=== PATIENT | female | born 1960 | race Caucasian/White ===

== ENCOUNTER 2017-10-30 15:57 | Inpatient (IN) | payer MEDICARE ==
[~2017-10-30] VITALS: Ht 160 cm; Wt 118.6 kg
[2017-10-30] MEDS ORDERED: methylPREDNISolone SOD SUCC 125 MG/2 ML ONE (16:20)
[2017-10-30] MEDS ORDERED: SODIUM CHLORIDE FLUSH 10ML SYR IVF ONE (16:30)
[2017-10-30] MEDS ORDERED: SODIUM CHLORIDE 0.9% 1,000ML IVBOLUS ONE (16:30)
[2017-10-30] MEDS ORDERED: methylPREDNISolone SOD SUCC 125 MG/2 ML IVP ONE (16:30)
[2017-10-30] MEDS ORDERED: ALBUTEROL SULFATE 2.5 MG/3 ML NPPB ONE (16:35)
[2017-10-30] MEDS ORDERED: ALBUTEROL SULFATE 2.5 MG/3 ML ONE (16:36)
[2017-10-30] MEDS ORDERED: ALBUTEROL SULFATE 2.5 MG/3 ML NPPB PRN (17:00)
[2017-10-30 17:06] LABS: BASOPHILS # (AUTO) 0.03 x10^3/uL (0-0.1); BASOPHILS % (AUTO) 0 % (0-1); EOSINOPHILS # (AUTO) 0.13 x10^3/uL (0-0.4); EOSINOPHILS % (AUTO) 2 % (1-7); LYMPHOCYTES # (AUTO) 0.97 x10^3/uL (1-3.4); LYMPHOCYTES % (AUTO) 15 % (22-44); MD NO; MEAN CORPUSCULAR HEMOGLOBIN 32.5 pg (27.0-34.8); MEAN CORPUSCULAR HGB CONC 33.2 g/dL (32.4-35.8); MEAN CORPUSCULAR VOLUME 97.9 fL (80-100); MEAN PLATELET VOLUME 7.9 fL (7.4-10.4); MONOCYTES # (AUTO) 0.28 x10^3/uL (0.2-0.8); MONOCYTES % (AUTO) 4 % (2-9); NEUTROPHILS # (AUTO) 5.27 x10^3/uL (1.8-6.8); NEUTROPHILS % (AUTO) 79 % (42-75); PLATELET COUNT 230 x10^3/uL (130-400); RED BLOOD COUNT 3.21 x10^6/uL (3.82-5.3); RED CELL DISTRIBUTION WIDTH 21.3 % (9.6-15.2)
[2017-10-30 17:18] LABS: ALANINE AMINOTRANSFERASE 14 U/L (12-78); ALBUMIN 3.6 g/dL (3.4-5.0); ANION GAP 6 mmol/L (5-15); CALCIUM 8.5 mg/dL (8.5-10.1); CHLORIDE 112 mmol/L (98-107); CREATININE 1.18 mg/dL (0.55-1.02)
[2017-10-30 17:22] LABS: ALKALINE PHOSPHATASE 112 U/L (45-117); BILIRUBIN,TOTAL 1.3 mg/dL (0.2-1.0); TOTAL PROTEIN 7.1 g/dL (6.4-8.2); TROPONIN I 0.031 ng/mL (0.000-0.045)
[2017-10-30] MEDS ORDERED: SITA1TBM7 PO (17:27)
[2017-10-30] MEDS ORDERED: FURO-92 PO (17:27)
[2017-10-30] MEDS ORDERED: METO-99 PO ×2 (17:27→17:37)
[2017-10-30] MEDS ORDERED: SERT50TA5 PO (17:27)
[2017-10-30] MEDS ORDERED: LISI2.5T PO (17:27)
[2017-10-30] MEDS ORDERED: AMIO200T42 PO (17:27)
[2017-10-30] MEDS ORDERED: CYCL-259 PO (17:27)
[2017-10-30] MEDS ORDERED: ATOR40TA PO (17:27)
[2017-10-30] MEDS ORDERED: CYAN10005 PO (17:37)
[2017-10-30] MEDS ORDERED: BUDE10.2 INH (17:37)
[2017-10-30] MEDS ORDERED: GLIM2TAB2 PO (17:37)
[2017-10-30] MEDS ORDERED: TIOT18CA INH (17:37)
[2017-10-30] MEDS ORDERED: WARF-36 PO (17:37)
[2017-10-30] MEDS ORDERED: CHOL500045 PO (17:37)
[2017-10-30] MEDS ORDERED: WARF5TAB PO (17:38)
[2017-10-30] MEDS ORDERED: NITROGLYCERIN OINT 2%, 1GM TP ONE ×2 (17:52→18:00)
[2017-10-30] MEDS ORDERED: FUROSEMIDE 40 MG/4 ML ONE (17:52)
[2017-10-30] MEDS ORDERED: FUROSEMIDE 40 MG/4 ML IV ONE (18:30)
[2017-10-30 20:28] VITALS: BP 164/97
[2017-10-30] MEDS ORDERED: METOPROLOL TARTRATE 100 MG TABLET PO SCH (21:00)
[2017-10-30] MEDS ORDERED: ALBUTEROL SULFATE 2.5 MG/3 ML NPPB SCH (21:00)
[2017-10-30 21:07] LABS: INTERNATIONAL NORMALIZED RATIO 1.6 (0.93-1.1); PROTHROMBIN TIME 16.3 Seconds (9.6-11.5)
[2017-10-30] MEDS ORDERED: ALBUTEROL/IPRATROPIUM 2.5MG/0.5MG, 3 ML ONE (21:27)
[2017-10-30] MEDS ORDERED: ALBUTEROL/IPRATROPIUM 2.5MG/0.5MG, 3 ML NPPB PRN (21:30)
[2017-10-30] MEDS ORDERED: WARFARIN 3 MG TABLET PO-COUM ONE (21:30)
[2017-10-30] MEDS: ALBUTEROL/IPRATROPIUM 2.5MG/0.5MG, 3 ML NPPB SCH (21:31)
[2017-10-30] MEDS: ATORVASTATIN 40 MG TABLET PO SCH (22:48)
[2017-10-30 22:54] VITALS: BP 164/100
[2017-10-31] MEDS ORDERED: DIPHENHYDRAMINE 25 MG CAPSULE PO PRN (00:15)
[2017-10-31] MEDS ORDERED: hydrOXyzine 10MG TABLET ONE (00:49)
[2017-10-31 00:51] VITALS: BP 147/89
[2017-10-31] MEDS: ALBUTEROL/IPRATROPIUM 2.5MG/0.5MG, 3 ML NPPB SCH ×4 (02:37→18:43)
[2017-10-31 05:36] LABS: INTERNATIONAL NORMALIZED RATIO 1.38 (0.93-1.1); PROTHROMBIN TIME 14.1 Seconds (9.6-11.5)
[2017-10-31 05:42] LABS: ANION GAP 6 mmol/L (5-15); CALCIUM 9.4 mg/dL (8.5-10.1); CHLORIDE 107 mmol/L (98-107)
[2017-10-31 06:45] VITALS: BP 184/94
[2017-10-31] MEDS ORDERED: IPRATROPIUM 0.5 MG/2.5 ML INHA NPPB SCH (09:00)
[2017-10-31] MEDS ORDERED: FUROSEMIDE 40 MG TABLET PO SCH (09:00)
[2017-10-31] MEDS: AMIODARONE 200 MG TABLET PO SCH (09:24)
[2017-10-31] MEDS: GLIMEPIRIDE 1 MG TABLET PO SCH (09:25)
[2017-10-31] MEDS: LISINOPRIL 5 MG TABLET PO SCH (09:25)
[2017-10-31] MEDS: FLUTICASONE/VILANTEROL 200-25MCG/INH INH SCH (09:25)
[2017-10-31] MEDS: TEMPLATE NON-FORMULARY MED. (Sitagliptin Phos/Metformin Hcl (Janumet Xr 100-1,000 Mg Table PO SCH (09:25)
[2017-10-31] MEDS: CYANOCOBALAMIN 1,000 MCG TABLET PO SCH (09:26)
[2017-10-31] MEDS: SERTRALINE 50MG TABLET PO SCH (09:26)
[2017-10-31] MEDS: FUROSEMIDE 40 MG TABLET PO SCH ×2 (09:26→22:53)
[2017-10-31] MEDS: INSULIN LISPRO 100 UNITS/ML, PEN SQ-INSULIN SCH ×3 (12:30→21:00)
[2017-10-31 12:50] VITALS: BP 146/81
[2017-10-31] MEDS ORDERED: WARFARIN 5 MG TABLET PO-COUM ONE (18:00)
[2017-10-31 18:22] VITALS: BP 142/83
[2017-10-31] MEDS: ATORVASTATIN 40 MG TABLET PO SCH (22:54)
[2017-11-01 01:35] VITALS: BP 137/91
[2017-11-01 05:31] LABS: INTERNATIONAL NORMALIZED RATIO 1.37 (0.93-1.1)
[2017-11-01 05:42] LABS: ANION GAP 7 mmol/L (5-15); CALCIUM 8.8 mg/dL (8.5-10.1); CHLORIDE 107 mmol/L (98-107)
[2017-11-01] MEDS: ALBUTEROL/IPRATROPIUM 2.5MG/0.5MG, 3 ML NPPB SCH ×4 (06:45→20:00)
[2017-11-01 07:05] VITALS: BP 153/92
[2017-11-01] MEDS: INSULIN LISPRO 100 UNITS/ML, PEN SQ-INSULIN SCH ×4 (07:23→20:44)
[2017-11-01] MEDS: TEMPLATE NON-FORMULARY MED. (Sitagliptin Phos/Metformin Hcl (Janumet Xr 100-1,000 Mg Table PO SCH (08:12)
[2017-11-01] MEDS: CYANOCOBALAMIN 1,000 MCG TABLET PO SCH (09:37)
[2017-11-01] MEDS: AMIODARONE 200 MG TABLET PO SCH (09:37)
[2017-11-01] MEDS: LISINOPRIL 5 MG TABLET PO SCH (09:38)
[2017-11-01] MEDS: GLIMEPIRIDE 1 MG TABLET PO SCH (09:38)
[2017-11-01] MEDS: SERTRALINE 50MG TABLET PO SCH (09:38)
[2017-11-01] MEDS: FUROSEMIDE 40 MG TABLET PO SCH ×2 (09:38→20:43)
[2017-11-01] MEDS: FLUTICASONE/VILANTEROL 200-25MCG/INH INH SCH (10:16)
[2017-11-01 13:10] VITALS: BP 151/89
[2017-11-01] MEDS: ACETAMINOPHEN 500 MG TABLET PO PRN (15:41)
[2017-11-01] MEDS ORDERED: WARFARIN 5 MG TABLET PO-COUM ONE (18:00)
[2017-11-01 19:18] VITALS: BP 137/68
[2017-11-01] MEDS: ATORVASTATIN 40 MG TABLET PO SCH (20:43)
[2017-11-01 20:49] VITALS: BP 154/79
[2017-11-02] VITALS (9 sets, daily range): BP systolic 132–155; BP diastolic 80–107
[2017-11-02 05:19] LABS: INTERNATIONAL NORMALIZED RATIO 1.33 (0.93-1.1); PROTHROMBIN TIME 13.6 Seconds (9.6-11.5)
[2017-11-02 05:28] LABS: CHLORIDE 102 mmol/L (98-107)
[2017-11-02 05:39] LABS: ANION GAP 8 mmol/L (5-15); CALCIUM 8.6 mg/dL (8.5-10.1); CREATININE 1.22 mg/dL (0.55-1.02)
[2017-11-02] MEDS: INSULIN LISPRO 100 UNITS/ML, PEN SQ-INSULIN SCH ×4 (07:21→21:07)
[2017-11-02] MEDS: ALBUTEROL/IPRATROPIUM 2.5MG/0.5MG, 3 ML NPPB SCH ×4 (07:51→20:00)
[2017-11-02] MEDS: LISINOPRIL 5 MG TABLET PO SCH (09:03)
[2017-11-02] MEDS: FUROSEMIDE 40 MG TABLET PO SCH ×2 (09:03→21:07)
[2017-11-02] MEDS: SPIRONOLACTONE 25 MG TABLET PO SCH (09:03)
[2017-11-02] MEDS: CYANOCOBALAMIN 1,000 MCG TABLET PO SCH (09:04)
[2017-11-02] MEDS: SERTRALINE 50MG TABLET PO SCH (09:04)
[2017-11-02] MEDS: AMIODARONE 200 MG TABLET PO SCH (09:04)
[2017-11-02] MEDS: FLUTICASONE/VILANTEROL 200-25MCG/INH INH SCH (09:05)
[2017-11-02] MEDS ORDERED: VERAPAMIL 2.5 MG/ML, 2ML IVPush ONE (09:30)
[2017-11-02] MEDS ORDERED: AMIODARONE 150 MG in DEXTROSE 5% 100 ML IV ONE ×2 (11:00→15:00)
[2017-11-02] MEDS ORDERED: FILTER 0.22 MICRON FOR AMIODARONE IV PRN (11:30)
[2017-11-02] MEDS: metFORMIN XR 500 MG TAB.ER.24H PO SCH (11:37)
[2017-11-02] MEDS: CYCLOBENZAPRINE 10 MG TABLET PO PRN (12:09)
[2017-11-02] MEDS ORDERED: AMIODARONE 450 MG in DEXTROSE 5% 241 ML IV PRN (15:00)
[2017-11-02] MEDS: AMIODARONE 450 MG in DEXTROSE 5% 241 ML IV PRN (15:21)
[2017-11-02] MEDS: METOPROLOL TARTRATE 25 MG TABLET PO SCH (17:33)
[2017-11-02] MEDS ORDERED: WARFARIN 7.5 MG TABLET PO-COUM ONE (18:00)
[2017-11-02] MEDS: ATORVASTATIN 40 MG TABLET PO SCH (21:07)
[2017-11-03 00:51] VITALS: BP 123/91
[2017-11-03] MEDS: AMIODARONE 450 MG in DEXTROSE 5% 241 ML IV PRN ×2 (01:06→16:37)
[2017-11-03 02:48] VITALS: BP 113/82
[2017-11-03 03:46] VITALS: BP 123/93
[2017-11-03] MEDS: METOPROLOL TARTRATE 25 MG TABLET PO SCH ×2 (03:47→18:41)
[2017-11-03] MEDS ORDERED: DILTIAZEM 5 MG/ML, 5ML IVPush PRN (04:00)
[2017-11-03 05:12] LABS: ANION GAP 7 mmol/L (5-15); CALCIUM 8.9 mg/dL (8.5-10.1); CHLORIDE 97 mmol/L (98-107); CREATININE 1.32 mg/dL (0.55-1.02)
[2017-11-03 05:44] LABS: INTERNATIONAL NORMALIZED RATIO 1.28 (0.93-1.1); PROTHROMBIN TIME 13.1 Seconds (9.6-11.5)
[2017-11-03 06:57] VITALS: BP 130/79
[2017-11-03] MEDS: INSULIN LISPRO 100 UNITS/ML, PEN SQ-INSULIN SCH ×4 (07:00→21:00)
[2017-11-03] MEDS: ALBUTEROL/IPRATROPIUM 2.5MG/0.5MG, 3 ML NPPB SCH ×4 (07:25→19:55)
[2017-11-03] MEDS: metFORMIN XR 500 MG TAB.ER.24H PO SCH (08:00)
[2017-11-03] MEDS: LISINOPRIL 5 MG TABLET PO SCH (09:19)
[2017-11-03] MEDS: SERTRALINE 50MG TABLET PO SCH (09:19)
[2017-11-03] MEDS: CYANOCOBALAMIN 1,000 MCG TABLET PO SCH (09:20)
[2017-11-03] MEDS: FUROSEMIDE 40 MG TABLET PO SCH (09:20)
[2017-11-03] MEDS: SPIRONOLACTONE 25 MG TABLET PO SCH (09:20)
[2017-11-03] MEDS: FLUTICASONE/VILANTEROL 200-25MCG/INH INH SCH (09:30)
[2017-11-03] MEDS ORDERED: POLYETHYLENE GLYCOL 17 GM PACKET PO ONE (11:00)
[2017-11-03] MEDS ORDERED: POTASSIUM CHLORIDE 20 MEQ TAB.ER.PRT PO ONE (11:00)
[2017-11-03 13:45] VITALS: BP 118/81
[2017-11-03] MEDS ORDERED: WARFARIN 7.5 MG TABLET PO-COUM ONE (18:00)
[2017-11-03] MEDS ORDERED: WARFARIN 10 MG TABLET PO-COUM ONE (18:00)
[2017-11-03 19:15] VITALS: BP 115/76
[2017-11-03] MEDS: ATORVASTATIN 40 MG TABLET PO SCH (23:08)
[2017-11-04 00:15] VITALS: BP 129/87
[2017-11-04 05:15] LABS: BASOPHILS # (AUTO) 0.02 x10^3/uL (0-0.1); BASOPHILS % (AUTO) 0 % (0-1); EOSINOPHILS # (AUTO) 0.24 x10^3/uL (0-0.4); EOSINOPHILS % (AUTO) 4 % (1-7); LYMPHOCYTES # (AUTO) 0.91 x10^3/uL (1-3.4); LYMPHOCYTES % (AUTO) 13 % (22-44); MD NO; MEAN CORPUSCULAR HEMOGLOBIN 31.8 pg (27.0-34.8); MEAN CORPUSCULAR HGB CONC 32.6 g/dL (32.4-35.8); MEAN CORPUSCULAR VOLUME 97.5 fL (80-100); MEAN PLATELET VOLUME 8.3 fL (7.4-10.4); MONOCYTES # (AUTO) 0.38 x10^3/uL (0.2-0.8); MONOCYTES % (AUTO) 6 % (2-9); NEUTROPHILS # (AUTO) 5.23 x10^3/uL (1.8-6.8); NEUTROPHILS % (AUTO) 77 % (42-75); PLATELET COUNT 216 x10^3/uL (130-400); RED BLOOD COUNT 3.17 x10^6/uL (3.82-5.3); RED CELL DISTRIBUTION WIDTH 19.8 % (9.6-15.2)
[2017-11-04 05:21] LABS: INTERNATIONAL NORMALIZED RATIO 1.45 (0.93-1.1); PROTHROMBIN TIME 14.8 Seconds (9.6-11.5)
[2017-11-04 05:26] LABS: CALCIUM 9.3 mg/dL (8.5-10.1); CHLORIDE 97 mmol/L (98-107)
[2017-11-04 05:30] LABS: ANION GAP 5 mmol/L (5-15); CREATININE 1.47 mg/dL (0.55-1.02)
[2017-11-04] MEDS: ALBUTEROL/IPRATROPIUM 2.5MG/0.5MG, 3 ML NPPB SCH ×4 (07:00→20:08)
[2017-11-04] MEDS: INSULIN LISPRO 100 UNITS/ML, PEN SQ-INSULIN SCH ×4 (07:00→20:21)
[2017-11-04 07:50] VITALS: BP 98/69
[2017-11-04] MEDS: metFORMIN XR 500 MG TAB.ER.24H PO SCH ×2 (08:00→09:57)
[2017-11-04 09:55] VITALS: BP 138/99
[2017-11-04] MEDS: FLUTICASONE/VILANTEROL 200-25MCG/INH INH SCH (09:56)
[2017-11-04] MEDS: FUROSEMIDE 40 MG TABLET PO SCH (09:57)
[2017-11-04] MEDS: METOPROLOL TARTRATE 25 MG TABLET PO SCH (09:57)
[2017-11-04] MEDS: SERTRALINE 50MG TABLET PO SCH (09:57)
[2017-11-04] MEDS: CYANOCOBALAMIN 1,000 MCG TABLET PO SCH (09:57)
[2017-11-04] MEDS: SPIRONOLACTONE 25 MG TABLET PO SCH (09:58)
[2017-11-04] MEDS ORDERED: LISINOPRIL 5 MG TABLET ONE (10:32)
[2017-11-04] MEDS ORDERED: PROPOFOL 10 MG/ML, 20ML ONE (11:11)
[2017-11-04 11:30] VITALS: BP 120/80
[2017-11-04] MEDS: AMIODARONE 200 MG TABLET PO SCH ×2 (11:34→20:26)
[2017-11-04] MEDS: LISINOPRIL 5 MG TABLET PO SCH (11:34)
[2017-11-04 13:00] VITALS: BP 111/72
[2017-11-04] MEDS ORDERED: WARFARIN 10 MG TABLET PO-COUM ONE (18:00)
[2017-11-04] MEDS ORDERED: METOPROLOL TARTRATE 25 MG TABLET PO SCH (18:00)
[2017-11-04 19:09] VITALS: BP 101/59
[2017-11-04] MEDS: ATORVASTATIN 40 MG TABLET PO SCH (20:26)
[2017-11-05 02:18] VITALS: BP 98/53
[2017-11-05 04:57] LABS: INTERNATIONAL NORMALIZED RATIO 1.7 (0.93-1.1); PROTHROMBIN TIME 17.3 Seconds (9.6-11.5)
[2017-11-05] MEDS: INSULIN LISPRO 100 UNITS/ML, PEN SQ-INSULIN SCH ×4 (07:00→20:39)
[2017-11-05 07:21] LABS: ANION GAP 4 mmol/L (5-15); CHLORIDE 99 mmol/L (98-107); CREATININE 1.46 mg/dL (0.55-1.02)
[2017-11-05] MEDS: ALBUTEROL/IPRATROPIUM 2.5MG/0.5MG, 3 ML NPPB SCH ×4 (07:35→21:50)
[2017-11-05 07:46] VITALS: BP 141/89
[2017-11-05] MEDS ORDERED: LISINOPRIL 5 MG TABLET PO SCH (09:00)
[2017-11-05] MEDS: FLUTICASONE/VILANTEROL 200-25MCG/INH INH SCH (09:27)
[2017-11-05] MEDS: AMIODARONE 200 MG TABLET PO SCH ×2 (09:28→20:38)
[2017-11-05] MEDS: SERTRALINE 50MG TABLET PO SCH (09:28)
[2017-11-05] MEDS: METOPROLOL TARTRATE 25 MG TABLET PO SCH (09:28)
[2017-11-05] MEDS: CYANOCOBALAMIN 1,000 MCG TABLET PO SCH (09:28)
[2017-11-05] MEDS: LISINOPRIL 5 MG TABLET PO SCH (09:29)
[2017-11-05] MEDS: FUROSEMIDE 40 MG TABLET PO SCH (09:29)
[2017-11-05] MEDS: metFORMIN XR 500 MG TAB.ER.24H PO SCH (09:30)
[2017-11-05] MEDS: SPIRONOLACTONE 25 MG TABLET PO SCH (09:30)
[2017-11-05] MEDS ORDERED: POLYETHYLENE GLYCOL 17 GM PACKET PO PRN (10:00)
[2017-11-05 14:30] VITALS: BP 114/74
[2017-11-05] MEDS ORDERED: WARFARIN 7.5 MG TABLET PO-COUM SCH (18:00)
[2017-11-05 19:22] VITALS: BP 101/65
[2017-11-05] MEDS: ATORVASTATIN 40 MG TABLET PO SCH (20:38)
[2017-11-06 00:35] VITALS: BP 103/62
[2017-11-06 05:49] LABS: ANION GAP 7 mmol/L (5-15); CALCIUM 9.8 mg/dL (8.5-10.1); CHLORIDE 98 mmol/L (98-107); CREATININE 1.43 mg/dL (0.55-1.02)
[2017-11-06 06:43] VITALS: BP 149/77
[2017-11-06] MEDS: INSULIN LISPRO 100 UNITS/ML, PEN SQ-INSULIN SCH ×4 (07:00→20:19)
[2017-11-06 07:03] LABS: INTERNATIONAL NORMALIZED RATIO 1.65 (0.93-1.1); PROTHROMBIN TIME 16.8 Seconds (9.6-11.5)
[2017-11-06 08:23] VITALS: BP_SYST 110; BP_SYST 118; BP_DIAS 61; BP_DIAS 74
[2017-11-06] MEDS: ALBUTEROL/IPRATROPIUM 2.5MG/0.5MG, 3 ML NPPB SCH ×4 (08:25→20:00)
[2017-11-06] MEDS: METOPROLOL TARTRATE 25 MG TABLET PO SCH (10:50)
[2017-11-06] MEDS: metFORMIN XR 500 MG TAB.ER.24H PO SCH (10:50)
[2017-11-06] MEDS: FUROSEMIDE 40 MG TABLET PO SCH (10:50)
[2017-11-06] MEDS: AMIODARONE 200 MG TABLET PO SCH ×2 (10:50→20:19)
[2017-11-06] MEDS: LISINOPRIL 5 MG TABLET PO SCH (10:51)
[2017-11-06] MEDS: SPIRONOLACTONE 25 MG TABLET PO SCH (10:51)
[2017-11-06] MEDS: CYANOCOBALAMIN 1,000 MCG TABLET PO SCH (10:51)
[2017-11-06] MEDS: FLUTICASONE/VILANTEROL 200-25MCG/INH INH SCH (10:53)
[2017-11-06] MEDS: SERTRALINE 50MG TABLET PO SCH (10:53)
[2017-11-06 14:30] VITALS: BP 134/79
[2017-11-06] MEDS ORDERED: WARFARIN 10 MG TABLET PO-COUM SCH (18:00)
[2017-11-06 19:09] VITALS: BP 113/75
[2017-11-06] MEDS: ATORVASTATIN 40 MG TABLET PO SCH (20:19)
[2017-11-07 00:25] VITALS: BP 90/50
[2017-11-07 05:11] LABS: INTERNATIONAL NORMALIZED RATIO 1.72 (0.93-1.1); PROTHROMBIN TIME 17.5 Seconds (9.6-11.5)
[2017-11-07 06:52] VITALS: BP 104/60
[2017-11-07] MEDS: INSULIN LISPRO 100 UNITS/ML, PEN SQ-INSULIN SCH ×4 (07:00→19:47)
[2017-11-07] MEDS: ALBUTEROL/IPRATROPIUM 2.5MG/0.5MG, 3 ML NPPB SCH ×4 (07:45→20:30)
[2017-11-07] MEDS: SPIRONOLACTONE 25 MG TABLET PO SCH (09:05)
[2017-11-07] MEDS: metFORMIN XR 500 MG TAB.ER.24H PO SCH (09:05)
[2017-11-07] MEDS: FUROSEMIDE 40 MG TABLET PO SCH (09:05)
[2017-11-07] MEDS: FLUTICASONE/VILANTEROL 200-25MCG/INH INH SCH (09:05)
[2017-11-07] MEDS: METOPROLOL TARTRATE 25 MG TABLET PO SCH (09:05)
[2017-11-07] MEDS: CYANOCOBALAMIN 1,000 MCG TABLET PO SCH (09:05)
[2017-11-07] MEDS: AMIODARONE 200 MG TABLET PO SCH ×2 (09:06→19:47)
[2017-11-07] MEDS: LISINOPRIL 5 MG TABLET PO SCH (09:06)
[2017-11-07] MEDS: SERTRALINE 50MG TABLET PO SCH (09:07)
[2017-11-07 14:00] VITALS: BP 107/71
[2017-11-07] MEDS ORDERED: WARFARIN 10 MG TABLET PO-COUM SCH (18:00)
[2017-11-07 19:26] VITALS: BP 115/71
[2017-11-07] MEDS: ATORVASTATIN 40 MG TABLET PO SCH (19:47)
[2017-11-07] MEDS: CYCLOBENZAPRINE 10 MG TABLET PO PRN (22:36)
[2017-11-07] MEDS: ACETAMINOPHEN 500 MG TABLET PO PRN (22:36)
[2017-11-08 00:42] VITALS: BP 110/77
[2017-11-08] MEDS ORDERED: MORPHINE SULFATE 4 MG/ML, 1ML IVPush ONE (01:00)
[2017-11-08 05:19] LABS: INTERNATIONAL NORMALIZED RATIO 2.24 (0.93-1.1); PROTHROMBIN TIME 22.7 Seconds (9.6-11.5)
[2017-11-08 05:22] LABS: ANION GAP 7 mmol/L (5-15); CHLORIDE 98 mmol/L (98-107)
[2017-11-08 05:26] LABS: CREATININE 1.89 mg/dL (0.55-1.02)
[2017-11-08] MEDS: ALBUTEROL/IPRATROPIUM 2.5MG/0.5MG, 3 ML NPPB SCH ×4 (07:00→21:50)
[2017-11-08] MEDS: INSULIN LISPRO 100 UNITS/ML, PEN SQ-INSULIN SCH ×4 (07:16→21:37)
[2017-11-08 07:20] VITALS: BP 112/74
[2017-11-08] MEDS: AMIODARONE 200 MG TABLET PO SCH ×2 (08:49→21:34)
[2017-11-08] MEDS: FUROSEMIDE 40 MG TABLET PO SCH (08:49)
[2017-11-08] MEDS: METOPROLOL TARTRATE 25 MG TABLET PO SCH (08:50)
[2017-11-08] MEDS: metFORMIN XR 500 MG TAB.ER.24H PO SCH (08:50)
[2017-11-08] MEDS: CYANOCOBALAMIN 1,000 MCG TABLET PO SCH (08:50)
[2017-11-08] MEDS: SERTRALINE 50MG TABLET PO SCH (08:50)
[2017-11-08] MEDS: SPIRONOLACTONE 25 MG TABLET PO SCH (08:51)
[2017-11-08] MEDS: LISINOPRIL 5 MG TABLET PO SCH (08:51)
[2017-11-08] MEDS: FLUTICASONE/VILANTEROL 200-25MCG/INH INH SCH (08:51)
[2017-11-08] MEDS ORDERED: HYDROCORTISONE CRM 0.025, 30GM RC PRN (10:30)
[2017-11-08] MEDS ORDERED: HYDROCORTISONE/PRAM CRM 2.5-1%, 4GM PR PRN (12:30)
[2017-11-08] MEDS ORDERED: hydrOXyzine 10MG TABLET PO ONE (13:30)
[2017-11-08] MEDS ORDERED: OXYcodone 5 MG/5 ML ORAL.SOL UDC PO ONE (13:30)
[2017-11-08 14:23] LABS: BASOPHILS # (AUTO) 0.02 x10^3/uL (0-0.1); BASOPHILS % (AUTO) 0 % (0-1); EOSINOPHILS # (AUTO) 0.22 x10^3/uL (0-0.4); EOSINOPHILS % (AUTO) 3 % (1-7); LYMPHOCYTES # (AUTO) 0.94 x10^3/uL (1-3.4); LYMPHOCYTES % (AUTO) 12 % (22-44); MD NO; MEAN CORPUSCULAR HGB CONC 32.9 g/dL (32.4-35.8); MEAN CORPUSCULAR VOLUME 97.3 fL (80-100); MEAN PLATELET VOLUME 8.9 fL (7.4-10.4); MONOCYTES # (AUTO) 0.53 x10^3/uL (0.2-0.8); MONOCYTES % (AUTO) 7 % (2-9); NEUTROPHILS # (AUTO) 6.14 x10^3/uL (1.8-6.8); NEUTROPHILS % (AUTO) 78 % (42-75); PLATELET COUNT 234 x10^3/uL (130-400); RED BLOOD COUNT 3.39 x10^6/uL (3.82-5.3); RED CELL DISTRIBUTION WIDTH 18.5 % (9.6-15.2)
[2017-11-08 14:25] VITALS: BP 109/69
[2017-11-08] MEDS ORDERED: hydrOXyzine 10MG TABLET PO PRN (16:30)
[2017-11-08] MEDS ORDERED: WARFARIN 10 MG TABLET PO-COUM SCH (18:00)
[2017-11-08 19:11] VITALS: BP 105/70
[2017-11-08] MEDS: OXYcodone IR 5MG TABLET PO PRN (21:34)
[2017-11-08] MEDS: ATORVASTATIN 40 MG TABLET PO SCH (21:34)
[2017-11-09 01:12] VITALS: BP 100/65
[2017-11-09 05:20] LABS: INTERNATIONAL NORMALIZED RATIO 2.71 (0.93-1.1); PROTHROMBIN TIME 27.4 Seconds (9.6-11.5)
[2017-11-09 05:27] LABS: ANION GAP 7 mmol/L (5-15); CALCIUM 9.4 mg/dL (8.5-10.1); CHLORIDE 97 mmol/L (98-107)
[2017-11-09 05:28] LABS: CREATININE 1.79 mg/dL (0.55-1.02)
[2017-11-09] MEDS: ALBUTEROL/IPRATROPIUM 2.5MG/0.5MG, 3 ML NPPB SCH (06:56)
[2017-11-09 07:19] VITALS: BP 104/68
[2017-11-09] MEDS: INSULIN LISPRO 100 UNITS/ML, PEN SQ-INSULIN SCH (08:43)
[2017-11-09] MEDS: metFORMIN XR 500 MG TAB.ER.24H PO SCH (08:43)
[2017-11-09] MEDS: SPIRONOLACTONE 25 MG TABLET PO SCH (08:43)
[2017-11-09] MEDS: AMIODARONE 200 MG TABLET PO SCH (08:44)
[2017-11-09] MEDS: METOPROLOL TARTRATE 25 MG TABLET PO SCH (08:44)
[2017-11-09] MEDS: LISINOPRIL 5 MG TABLET PO SCH (08:44)
[2017-11-09] MEDS: SERTRALINE 50MG TABLET PO SCH (08:44)
[2017-11-09] MEDS: CYANOCOBALAMIN 1,000 MCG TABLET PO SCH (08:44)
[2017-11-09] MEDS: FUROSEMIDE 40 MG TABLET PO SCH (08:44)
[2017-11-09] MEDS: FLUTICASONE/VILANTEROL 200-25MCG/INH INH SCH (08:45)
[2017-11-09] MEDS: ACETAMINOPHEN 500 MG TABLET PO PRN (09:42)
[2017-11-09] MEDS ORDERED: PRED20TA PO (10:24)
[2017-11-09] MEDS ORDERED: SPIR25TA PO (10:24)
[2017-11-09] MEDS: OXYcodone IR 5MG TABLET PO PRN (10:40)
[2017-11-09] MEDS ORDERED: ALBUTEROL/IPRATROPIUM 2.5MG/0.5MG, 3 ML NPPB SCH (16:00)
[2017-11-09] MEDS ORDERED: WARFARIN 5 MG TABLET PO-COUM ONE (18:00)
== END 2017-11-09 11:40 | disposition home or self-care (01) | DRG 291 ==
LOC: ED 18:00 → EDIP 18:01 → ED 18:14 → 5SO 20:22 → DCLOUNGE 11-09 11:25
PROVIDERS: ADMIT Family Medicine; ATTEND Family Medicine
PROC: 5A2204Z Restoration of Cardiac Rhythm, Single (ICD-10-PCS; principal; 2017-10-30)
PROC: 5A09357 Assistance with Respiratory Ventilation, Less than 24 Consecutive Hours, Continuous Positive Airway Pressure (ICD-10-PCS; 2017-11-01)
PROC: 5A09357 Assistance with Respiratory Ventilation, Less than 24 Consecutive Hours, Continuous Positive Airway Pressure (ICD-10-PCS; 2017-11-02)
PROC: 5A09357 Assistance with Respiratory Ventilation, Less than 24 Consecutive Hours, Continuous Positive Airway Pressure (ICD-10-PCS; 2017-11-03)
PROC: 5A09357 Assistance with Respiratory Ventilation, Less than 24 Consecutive Hours, Continuous Positive Airway Pressure (ICD-10-PCS; 2017-11-04)
PROC: 5A09357 Assistance with Respiratory Ventilation, Less than 24 Consecutive Hours, Continuous Positive Airway Pressure (ICD-10-PCS; 2017-11-05)
PROC: 5A09357 Assistance with Respiratory Ventilation, Less than 24 Consecutive Hours, Continuous Positive Airway Pressure (ICD-10-PCS; 2017-11-06)
PROC: 5A09357 Assistance with Respiratory Ventilation, Less than 24 Consecutive Hours, Continuous Positive Airway Pressure (ICD-10-PCS; 2017-11-07)
PROC: 5A09357 Assistance with Respiratory Ventilation, Less than 24 Consecutive Hours, Continuous Positive Airway Pressure (ICD-10-PCS; 2017-11-08)
PROC: 5A09357 Assistance with Respiratory Ventilation, Less than 24 Consecutive Hours, Continuous Positive Airway Pressure (ICD-10-PCS; 2017-11-09)
DX: I50.23 Acute on chronic systolic (congestive) heart failure (principal); J18.9 Pneumonia, unspecified organism; D68.69 Other thrombophilia; J44.0 Chronic obstructive pulmonary disease with (acute) lower respiratory infection; N17.9 Acute kidney failure, unspecified; Z68.43 Body mass index [BMI] 50.0-59.9, adult; E11.9 Type 2 diabetes mellitus without complications; J44.9 Chronic obstructive pulmonary disease, unspecified; I48.91 Unspecified atrial fibrillation; E78.5 Hyperlipidemia, unspecified; F17.210 Nicotine dependence, cigarettes, uncomplicated; G47.33 Obstructive sleep apnea (adult) (pediatric); I27.20 Pulmonary hypertension, unspecified; M10.9 Gout, unspecified; T38.0X5A Adverse effect of glucocorticoids and synthetic analogues, initial encounter; Z79.01 Long term (current) use of anticoagulants; Z79.899 Other long term (current) drug therapy; Z99.81 Dependence on supplemental oxygen
CPT/HCPCS: 36415; 71045; 71046; 76770; 80048; 80053; 82043; 82962; 83605; 83735; 83880; 84436; 84443; 84481; 84484; 84550; 85025; 85610; 87040; 92960; 93005; 94640; 94660; 96374; 96375; C8929; J1940; J2704; J7060; J7620; J0282; J1815; J2930; J7030; J7512; Q0177